=== PATIENT | male | born 1990 | race African-American/Black ===

== ENCOUNTER 2019-02-06 09:32 | Emergency (ER) | payer SELFPAY ==
[~2019-02-06] VITALS: Ht 175.3 cm; Wt 80.9 kg
--- NOTE | 2019-02-06 10:42 | NUR ---
PT C/O SWELLING BEHIND LEFT EAR HE HAS HAD FOR YEARS BUT HAS INCREASED IN SIZE WITH PAIN THE LAST FEW DAYS. PT DENIES ANY OTHER SYMPTOMS.
[2019-02-06] MEDS ORDERED: SODIUM CHLORIDE FLUSH 10ML SYR IVF ONE (11:00)
[2019-02-06 11:40] LABS: BASOPHILS # (AUTO) 0.03 x10^3/uL (0-0.1); BASOPHILS % (AUTO) 1 % (0-1); EOSINOPHILS # (AUTO) 0.05 x10^3/uL (0-0.4); EOSINOPHILS % (AUTO) 1 % (1-7); LYMPHOCYTES % (AUTO) 42 % (22-44); MD NO; MEAN CORPUSCULAR HEMOGLOBIN 28.2 pg (27.5-34.5); MEAN CORPUSCULAR HGB CONC 31.9 g/dL (33.2-36.2); MEAN CORPUSCULAR VOLUME 88.5 fL (81-97); MEAN PLATELET VOLUME 8.3 fL (7.4-10.4); MONOCYTES # (AUTO) 0.34 x10^3/uL (0.2-0.8); MONOCYTES % (AUTO) 8 % (2-9); NEUTROPHILS # (AUTO) 1.92 x10^3/uL (1.8-6.8); NEUTROPHILS % (AUTO) 48 % (42-75); PLATELET COUNT 193 x10^3/uL (130-400); RED BLOOD COUNT 4.87 x10^6/uL (4.38-5.82); RED CELL DISTRIBUTION WIDTH 13.3 % (9.4-14.8)
--- NOTE | 2019-02-06 11:43 | NUR ---
CT STILL WAITING ON PENDING LABS FOR EXAM
[2019-02-06 11:48] LABS: ALBUMIN 4.2 g/dL (3.4-5.0); ANION GAP 5 mmol/L (5-15); CALCIUM 9.1 mg/dL (8.5-10.1); CHLORIDE 110 mmol/L (98-107); CREATININE 1.05 mg/dL (0.7-1.3)
--- NOTE | 2019-02-06 11:59 | NUR ---
CT CALLED AND NOTIFIED BUN/CREATININE WERE WITHIN NORMAL LIMITS. WAITING FOR CT SCAN TO BE DONE.
[2019-02-06] MEDS ORDERED: OMNIPAQUE 350 MG/ML, 75ML BOTTLE ONE (12:00)
--- NOTE | 2019-02-06 12:03 | NUR ---
PT TO CT
[2019-02-06 13:20] VITALS: BP 127/71
== END 2019-02-06 13:23 | disposition home or self-care (01) ==
LOC: ED 13:09
DX: K04.7 Periapical abscess without sinus (principal); R59.9 Enlarged lymph nodes, unspecified; K05.219 Aggressive periodontitis, localized, unspecified severity; H92.01 Otalgia, right ear
CPT/HCPCS: 36415; 70487; 80048; 82040; 85025; 99284; Q9967